=== PATIENT | male | born 1980 | race Caucasian/White ===

== ENCOUNTER 2020-04-13 13:34 | Outpatient (CLI) | payer BC, SELFPAY ==
--- NOTE | 2020-04-13 | CT_ITS ---
WS: [id number] CT ABDOMEN WITH CONTRAST HISTORY: ABD WALL ABNORMALITY Contiguous single phase 5 mm axial imaging performed to the abdomen. Oral contrast has been provided. Coronal and sagittal reformats are submitted. All CT scans at [facility] use at least on e of these dose optimization techniques: automated exposure control; mA and/or kV adjustment per lamin ent size (includes targeted exams where dose is matched to clinical indication); or iterative reconst ruction. CONTRAST: None DLP: 577.99 mGycm COMPARISON: None available. Lower thorax: Unremarkable. Liver: Normal. No intrahepatic dilatation. Gallbladder: Normal. Pancreas: Normal. Spleen: Normal. Adrenals: Normal. Right kidney: Normal. Left kidney: Normal. Aorta: Normal. GI tract: Normal. No adenopathy or free fluid. Abdominal wall: No soft tissue masses within the abdominal wall. Small fat-containing umbilical herni a. Visualized osseous structures: Minimal LEFT convex curvature of the lumbar spine. CT/CT abdomen wo con [id number] IMPRESSION: 1. No soft tissue mass in the LEFT upper abdomen/abdominal wall. 2. Small fat-containing umbilical hernia.
[2020-04-13] MEDS: iohexol 300 mg/mL 50 mL Btl IV ×2 (14:08→14:09)
== END 2020-04-13 13:35 | disposition home or self-care (01) ==
LOC: RADWPI 13:42
PROVIDERS: Family Provider Specialist; PCP Specialist; Visit Provider Surgery
DX: R19.02 Left upper quadrant abdominal swelling, mass and lump (principal); K42.9 Umbilical hernia without obstruction or gangrene
CPT/HCPCS: 74150; Q9967